=== PATIENT | male | born 1980 | race Caucasian/White ===

== ENCOUNTER 2019-04-06 14:01 | Emergency (ER) | payer OTHER ==
[~2019-04-06] VITALS: Ht 180.3 cm; Wt 136.1 kg
--- NOTE | 2019-04-06 14:04 | NUR ---
PT BIBA TO BED 09.
[2019-04-06 14:08] VITALS: BP 137/84
--- NOTE | 2019-04-06 14:24 | NUR ---
COVERING PRIMARY RN FOR LUNCH RELIEF. PT TO ED VIA EMS FOR HEADACHE. PER EMS REPORT, PT WAS ABOUT TO BE ARRESTED THEN HAD AN EPISODE OF SEIZURE LIKE ACTIVITY. PT IS A/O TO NAME, BIRTHDAY, PLACE, AND EVENT. PT APPEARS TO BE LETHARGIC BUT ABLE TO BE AROUSED EASILY BY NAME. SZ PRECAUTIONS IN PLACE. NO DISTRESS NOTED. VSS.
[2019-04-06] MEDS ORDERED: levETIRAcetam 500 MG TAB PO ONE (15:45)
--- NOTE | 2019-04-06 16:10 | NUR ---
PT TOLERATED PO FLUIDS, STATES HE IS READY TO GO BUT NEEDS HOMELESS RESOURCES.
[2019-04-06 16:28] VITALS: BP 137/84
--- NOTE | 2019-04-06 16:28 | NUR ---
Patient discharged with v/s stable. Written and verbal after care instructions given and explained. Patient alert, oriented and verbalized understanding of instructions. Ambulatory with steady gait. All questions addressed prior to discharge. ID band removed. Patient advised to follow up with PMD. Rx of KEAGNELRA given. Patient educated on indication of medication including possible reaction and side effects. Opportunity to ask questions provided and answered. BUS PASS PROVIDED, SHIRT, SOCKS, HOMELESS MEAL, HOMELESS RESOURCES.
== END 2019-04-06 16:28 | disposition home or self-care (01) ==
LOC: MED 14:01
DX: R56.9 Unspecified convulsions (principal); E11.9 Type 2 diabetes mellitus without complications; F12.90 Cannabis use, unspecified, uncomplicated; F15.90 Other stimulant use, unspecified, uncomplicated; F17.200 Nicotine dependence, unspecified, uncomplicated; Z59.0 Homelessness
CPT/HCPCS: 82948; 99283